=== PATIENT | male | born 1950 | race Caucasian/White ===

== ENCOUNTER 2020-06-02 23:33 | Inpatient (IN) | payer MEDICARE, OTHER ==
[~2020-06-02] VITALS: Ht 182.9 cm; Wt 98.5 kg
[~2020-06-02 23:33] MED LIST: ALDACTAZIDE 251 EACH PO; ALDACTONE 25MG25 MG PO; ALDACTONE25 MG PO; ASPIRIN EC81 MG PO; ATORVASTATIN CA20 MG PO; BACTROBAN CREAM15 GM TOP; BASAGLAR K100 UNIT/1 SQ; CATAPRES 0.1MG0.1 MG PO; CLINDAMYCIN HC300 MG PO; CLOPIDOGREL75 MG PO; COZAAR100 MG PO; ECOTRIN81 MG PO; ELIQUIS5 MG PO; FERROUS SULFAT325 M2 PO; FLUOROURACIL TOP; FUROSEMIDE40 MG PO; HUMALOG MI100 UNIT/3 SQ; HYDRALAZINE HC100 MG PO; HYDRALAZINE HCL25 MG PO; HYDRALAZINE HCL50 MG PO; IMDUR ER TAB 3030 MG PO; IMDUR ER TAB 6060 MG PO; INVANZ 1 GM VIAL1 GM IM; LANTUS100 UNIT/1 SQ; LIPITOR TAB 2020 MG PO; LISINOPRIL10 MG PO; LOPRESSOR 25 MG25 MG PO; LOPRESSOR 50 MG50 MG PO; MOBIC7.5 MG PO; NEURONTIN 300300 MG PO; NITROSTAT0.4 MG SL; NORVASC10 MG PO; NOVOLOG100 UNIT/1 SQ; PLAVIX 75 MG TA75 MG PO; PRAVACHOL40 MG PO; SPIRONOLACTONE25 MG PO; TYLENOL 325MG325 MG PO; VICTOZA 1818 MG/3 ML SC; VITAMIN B-1100 MG PO; VITAMIN B-121000 MCG PO; VITAMIN B-650 MG PO; VITAMIN D250000 UNIT PO; Voltaren Gel 1 % TOP
[2020-06-03 00:18] LABS: HEMOGLOBIN 9.9 gm/dl (14.0-17.5); RED BLOOD COUNT 3.33 M/UL (4.20-5.50); WHITE BLOOD COUNT 7.4 K/UL (4.5-11.0)
[2020-06-03 10:55] LABS: HEMOGLOBIN 9.5 gm/dl (14.0-17.5); RED BLOOD COUNT 3.14 M/UL (4.20-5.50); WHITE BLOOD COUNT 5.6 K/UL (4.5-11.0)
[2020-06-03] MEDS ORDERED: ULTRAM50 MG PO (14:33)
[2020-06-04 02:47] LABS: HEMOGLOBIN 7.8 gm/dl (14.0-17.5)
[2020-06-04 02:48] LABS: RED BLOOD COUNT 2.57 M/UL (4.20-5.50); WHITE BLOOD COUNT 8.1 K/UL (4.5-11.0)
--- NOTE | 2020-06-04 03:56 | NUR ---
06-03-2020 @ 1900- PT REFUSED TIRADO CATHETER.
[2020-06-05 02:46] LABS: HEMOGLOBIN 9.4 gm/dl (14.0-17.5); RED BLOOD COUNT 3.18 M/UL (4.20-5.50); WHITE BLOOD COUNT 9.9 K/UL (4.5-11.0)
[2020-06-06 03:28] LABS: HEMOGLOBIN 9.3 gm/dl (14.0-17.5); RED BLOOD COUNT 3.16 M/UL (4.20-5.50); WHITE BLOOD COUNT 9.3 K/UL (4.5-11.0)
[2020-06-07 02:34] LABS: RED BLOOD COUNT 3.03 M/UL (4.20-5.50)
[2020-06-08 04:49] LABS: HEMOGLOBIN 10.4 gm/dl (14.0-17.5); WHITE BLOOD COUNT 9.4 K/UL (4.5-11.0)
[2020-06-08 04:55] LABS: RED BLOOD COUNT 3.47 M/UL (4.20-5.50)
[2020-06-14] MEDS ORDERED: ELIQUIS 2.5 MG2.5 MG PO (17:49)
[2020-06-14] MEDS ORDERED: BUMETANIDE1 MG PO (17:49)
[2020-06-14] MEDS ORDERED: ATORVASTATIN CA20 MG PO (17:49)
[2020-06-14] MEDS ORDERED: PROTONIX 40 MG40 M1 PO (17:49)
[2020-06-14] MEDS ORDERED: CLOPIDOGREL75 MG PO (17:49)
[2020-06-14] MEDS ORDERED: CATAPRES 0.1MG0.1 MG PO (17:49)
[2020-06-14] MEDS ORDERED: LOPRESSOR 50 MG50 MG PO (17:49)
[2020-06-14] MEDS ORDERED: ASPIRIN EC81 MG PO (17:49)
== END 2020-06-16 12:30 | disposition home health service (06) | DRG 871 ==
LOC: ER1 23:33 → PROG CARE 06-03 01:34 → M/S 06-03 01:34 → CDU 06-03 01:34 → PROG CARE 06-03 15:45 → M/S 06-07 18:58
PROVIDERS: Emergency Medicine; Internal Medicine; Internal Medicine Nephrology; ADMIT Family Medicine
PROC: 8E0ZXY6 Isolation (ICD-10-PCS; principal; 2020-06-03)
PROC: XW033E5 Introduction of Remdesivir Anti-infective into Peripheral Vein, Percutaneous Approach, New Technology Group 5 (ICD-10-PCS; 2020-06-03)
DX: A41.89 Other specified sepsis (principal); U07.1 COVID-19; I50.23 Acute on chronic systolic (congestive) heart failure; J12.82 Pneumonia due to coronavirus disease 2019; J96.21 Acute and chronic respiratory failure with hypoxia; N17.0 Acute kidney failure with tubular necrosis; E87.2 Acidosis; J44.0 Chronic obstructive pulmonary disease with (acute) lower respiratory infection; I13.0 Hypertensive heart and chronic kidney disease with heart failure and stage 1 through stage 4 chronic kidney disease, or unspecified chronic kidney disease; I42.9 Cardiomyopathy, unspecified; N18.4 Chronic kidney disease, stage 4 (severe); R65.20 Severe sepsis without septic shock; I16.0 Hypertensive urgency; E11.22 Type 2 diabetes mellitus with diabetic chronic kidney disease; Z91.15 Patient's noncompliance with renal dialysis; I25.10 Atherosclerotic heart disease of native coronary artery without angina pectoris; Z95.5 Presence of coronary angioplasty implant and graft; I44.7 Left bundle-branch block, unspecified; Z95.810 Presence of automatic (implantable) cardiac defibrillator; Z86.718 Personal history of other venous thrombosis and embolism; Z86.73 Personal history of transient ischemic attack (TIA), and cerebral infarction without residual deficits; Z82.49 Family history of ischemic heart disease and other diseases of the circulatory system; F17.210 Nicotine dependence, cigarettes, uncomplicated; E11.65 Type 2 diabetes mellitus with hyperglycemia; I48.0 Paroxysmal atrial fibrillation; N28.9 Disorder of kidney and ureter, unspecified
CPT/HCPCS: ECHO; 36415; 36600; 71045; 71250; 80048; 80053; 80307; 81001; 82550; 82553; 82803; 82962; 83036; 83605; 83690; 83735; 83874; 83880; 84100; 84439; 84443; 84484; 85025; 85027; 85610; 85730; 87040; 89050; 93005; 93306; 94640; 94660; 94664; 94760; 96374; 96375; 96376; 97110-GP-CQ; 97116-GP-CQ; 97162; 99285; J0360; J0456; J0696; J1100; J1250; J2270; J7030; Q9967; U0002